=== PATIENT | male | born 1950 | race Caucasian/White ===

== ENCOUNTER → 2016-09-24 | Outpatient (REF) | payer MEDICARE, MEDICAID ==
[~2016-09-24] MED LIST: ADV500INH INH; ALBU17IN INH; AMIT25TA PO; BENA20TA2 PO; COMBAER6 INH; FINA5TAB2 PO; FLON0.054; FURO40TA2 PO; HYDR100T PO; INSULANT SC; LIPI20TA PO; LYRI75CA PO; MAGO400T PO; NICO21DI5 TD; NORV5TAB PO; NOVOINJ3 SC; PANT40TA2 PO; PLAV75TA38 PO; POTA20TA4 PO; TAMS0.4C2 PO; TIZA2CAP3 PO; VICO5TAB16 PO
[2016-09-24 21:11] LABS: SQUAMOUS EPITHELIAL CELL URINE SMALL AMOUNT /hpf (SMALL AMT)
[2016-09-24 21:12] LABS: BACTERIA, URINE NONE SEEN; HYALINE CAST, URINE NONE SEEN /lpf (0-1); MICROSCOPIC EXAM PERFORMED
== END ==
LOC: M LAB REF 17:35
DX: R31.9 Hematuria, unspecified (principal)

== ENCOUNTER → 2016-10-03 | Outpatient (REF) | payer MEDICARE, MEDICAID | LOC: M LAB REF 09:34 | DX: N18.3 Chronic kidney disease, stage 3 (moderate) (principal) ==